=== PATIENT | female | born 1960 | race Caucasian/White ===

== ENCOUNTER 2022-02-08 05:14 | Observation (INO) | payer SELFPAY ==
[2022-02-08] VITALS (19 sets, daily range): BP systolic 79–130; BP diastolic 52–82; PULSE 70–130; RESP 13–21; TEMP 36.3–37; O2SAT 91–100; BMI 35.3
--- NOTE | ~2022-02-08 | XR_ITS ---
EXAMINATION: XR chest 1V portable DATE: 02/08/2022 07:46 INDICATION: Weakness. TECHNIQUE: A single frontal view of the chest was obtained. COMPARISON: Chest 2 views 06/11/2015, chest CT 06/11/2015 FINDINGS: There is chronic mild elevation of right hemidiaphragm. No pneumonia, pleural effusion, or pneumothorax. The heart size is normal. IMPRESSION: 1. No acute cardiopulmonary disease. Reviewed, dictated and finalized at location A. [employer]
--- NOTE | 2022-02-08 05:23 | ECG_ITS ---
Measurements Intervals [place] Rate: 108 P: 69 ME: 165 QRS: -43 QRSD: 109 T: 76 QT: 308 QTc: 414 Interpretive Statements SINUS TACHYCARDIA LEFT AXIS DEVIATION DELAYED PRECORDIAL R/S TRANSITION LEFT VENTRICULAR HYPERTROPHY AND ST-T CHANGE ABNORMAL ECG COMPARED TO ECG 09/27/2018 18:36:12 LEFT-AXIS DEVIATION NOW PRESENT LEFT VENTRICULAR HYPERTROPHY NOW PRESENT Electronically Signed On 02-08-2022 6:57:12 [employer] by Stuart Lacey D.O.
--- NOTE | 2022-02-08 05:35 | ED.SYNCOPE ---
HPI - Syncope General Chief Complaint: Syncope <Selena Day MD - Last Filed: 02/08/22 07:37> Stated Complaint: SYNCOPE/DIZZY/WEAK <Selena Day MD - Last Filed: 02/08/22 07:37> Time Seen by Provider: 02/08/22 05:35 <Selena Day MD - Last Filed: 02/08/22 07:37> Source: patient and EMS <Selena Day MD - Last Filed: 02/08/22 07:37> Mode of arrival: EMS <Selena Day MD - Last Filed: 02/08/22 07:37> Limitations: no limitations <Selena Day MD - Last Filed: 02/08/22 07:37> History of Present Illness HPI narrative: Patient is a 61-year-old female presenting to the emergency department for evaluation following a syncopal event. Patient presents via EMS. Patient woke up to go to the restroom, was attempting to have a bowel movement this morning and then passed out while having a bowel movement. Patient was able to catch herself falling forward. Patient was able to stand up and get back onto the toilet. EMS was contacted. At the time of their arrival, patient was sitting on the toilet. Patient states that she has been generally weak over the past several days. She denies focal weakness or numbness. She reports rhinorrhea and congestion. She reports subjective fever and chills. She reports decreased oral intake secondary to lack of appetite. She denies chest pain, palpitations. She denies shortness of breath. She denies current abdominal pain, nausea or vomiting. She denies dysuria or hematuria. Patient denies recent sick contacts. She denies current neck pain, cervical, thoracic or lumbar pain. She denies hip pain. <Selena Day MD - Last Filed: 02/08/22 07:37> Related Data Allergies/Adverse Reactions: Allergies Allergy/AdvReac Type Severity Reaction Status Date / Time No Known Allergies Allergy Unverified 06/11/15 16:09 <Selena Day MD - Last Filed: 02/08/22 07:37> Review of Systems Review of Systems: CONSTITUTIONAL: Denies fever, chills, or sweats. EYES: Denies visual changes, redness, or discharge. ENT: Reports rhinorrhea, denies sore throat or otalgia CARDIOVASCULAR: Denies chest pain, palpitations, or edema. RESPIRATORY: Denies cough or dyspnea. GASTROINTESTINAL: Denies abdominal pain, nausea, vomiting, or diarrhea. GENITOURINARY: Denies dysuria or hematuria. SKIN: Denies rash or itching. MUSCULOSKELETAL: Denies back pain, joint pain, or myalgia. NEUROLOGIC: Denies headache, numbness, reports generalized weakness <Selena Day MD - Last Filed: 02/08/22 07:37> [facility] Past Medical History Medical History: Medical History Orthostatic dizziness <Selena Day MD - Last Filed: 02/08/22 07:37> Surgical History Surgical History: Surgical History Hx of appendectomy <Selena Day MD - Last Filed: 02/08/22 07:37> Family History Family History: Family History Mother Diabetes mellitus Father Acute myocardial infarction Sibling Carcinoma of colon <Selena Day MD - Last Filed: 02/08/22 07:37> Social History Social History: Social History Smoking status: Current every day smoker Alcohol intake: current <Selena Day MD - Last Filed: 02/08/22 07:37> Exam Narrative: GENERAL: Awake, alert, conversant, ill-appearing HEAD: Normocephalic, atraumatic. EYES: PERRLA and EOMI. ENT: Nares clear, no rhinorrhea or epistaxis. Mucous membranes dry. NECK: Supple. CHEST: No respiratory distress, breathing even and non labored HEART: Tachycardic rate, sinus rhythm ABDOMEN:Non distended, non tender EXTREMITIES: Normal range of motion. No edema. SKIN: Warm, dry, no rash. NEURO:No focal deficits. Alert and oriented x3 <Selena Day MD - Last Filed: 02/08/22 07:3
[2022-02-08 05:50] LABS: Alanine Aminotransferase 16 U/L (6-35); Albumin Level 4.3 g/dL (3.5-5.1); Alkaline Phosphatase 87 U/L (38-126); Anion Gap 11 mmol/L (8-16); Aspartate Amino Transferase 30 U/L (14-36); Bilirubin,Total 0.4 mg/dL (0.2-1.3); Blood Urea Nitrogen 21 mg/dL (7-17); Calcium 8.7 mg/dL (8.4-10.2); Carbon Dioxide 19 mmol/L (22-30); Chloride 104 mmol/L (98-107); Estimated CRCL calculation 52 ml/min; Estimated Glomerular Filt Rate 46; Glucose 132 mg/dL (65-110); Potassium 4.1 mmol/L (3.4-5.0); Sodium 134 mmol/L (137-145)
[2022-02-08] MEDS: SODIUM CHLORIDE 0.9% IV 1,000 ML 999 ML IV CONT ×2 (05:51→09:29)
[2022-02-08] MEDS: ONDANSETRON INJ 4 MG/2 ML VIAL IV PUSH (05:51)
[2022-02-08 05:56] LABS: Basophils Absolute Auto 0.1 K/mm3 (0.0-0.1); Basophils Percent Auto 0.8 % (0.2-1.2); Hemoglobin 14.4 g/dL (12.0-15.0); Immature Granulocyte Absolute 0.04 K/mm3 (0.00-0.031); Immature Granulocyte Percent A 0.4 % (0-0.5); Lymphocytes Absolute Auto 0.84 K/mm3 (0.9-3.2); Lymphocytes Percent Auto 9.3 % (18.3-44.2); Mean Corpuscular HGB Conc 33.5 g/dl (32-36); Mean Corpuscular Hemoglobin 29.4 pg (26-34); Mean Corpuscular Volume 87.9 fl (80-100); Mean Platelet Volume 9.9 fl (7.4-10.4); Monocytes Absolute Auto 0.6 K/mm3 (0.1-0.6); Monocytes Percent Auto 6.8 % (2.6-8.5); Neutrophils Absolute Auto 7.5 K/mm3 (1.3-6.7); Neutrophils Percent Auto 82.7 % (45.5-73.1); Platelet Count Result 249 k/mm3 (150-375); Red Blood Count 4.89 M/mm3 (4.2-5.4); White Blood Count 9.1 K/mm3 (4.5-10.0)
[2022-02-08 07:16] LABS: NT Pro B Type Natriuretic Pept 236 pg/mL (5-100); Troponin I < 0.012 ng/mL (0.000-0.034)
[2022-02-08 07:32] LABS: INR 1.2; Prothrombin Time 14.6 Seconds (11.1-14.7)
[2022-02-08 07:33] LABS: Partial Thromboplastin Time 29.8 SECONDS (22.3-36.8)
[2022-02-08 07:36] LABS: Influenza A QL RT-PCR Negative (Negative); Influenza B QL RT-PCR Negative (Negative); RSV RNA, RT-PCR Negative (Negative); SARS-CoV-2 RNA PCR Positive
[2022-02-08 07:40] LABS: D Dimer 1.27 ug/mL (<0.48)
[2022-02-08 09:30] LABS: Appearance Urine Clear (Clear); Bilirubin Urine 1+ (Negative); Blood Urine 2+ (Negative); Color Urine Yellow (Yellow); Glucose Urine UA Negative (Negative); Ketones Urine 1+ mg/dL (Negative); Leukocyte Esterase Ur Negative LEU/UL (Negative); Nitrate Urine Negative (Negative); Protein Urine 1+ mg/dL (Negative); Urobilinogen Urine 0.2 mg/dL (<2.0)
[2022-02-08 09:39] LABS: Bacteria Urine Trace /hpf; Mucus Urine Rare /lpf; Squamous Epithelial Cell Urine Rare /hpf (Few); WBC Urine 0-3 /hpf
[2022-02-08 09:41] LABS: Add Urine Microscopic? YES
--- NOTE | 2022-02-08 11:45 | ADMGEN ---
This patient, Carmel Calvin, was admitted to Medical Room 261-01. Patient/family oriented to hospital policies and general routines including ID bracelet, bed and alarms, visiting hours, pain management, procedures, bathroom and other care routines, personal items, smoking policy, room service/diet, and visiting hours. Information on how to activate the Rapid Response Team has been discussed. Patient/Family are encouraged to report perceived risks to care and to ask questions if they do not understand what they are told or what they should do.
[2022-02-08] MEDS: SODIUM CHLORIDE 0.9% IV 1,000 ML 150 ML IV CONT ×2 (12:02→21:55)
--- NOTE | 2022-02-08 13:00 | PM.IMHP ---
H&P: HPI History of Present Illness Date/Time: 02/08/22 13:00 Chief Complaint: Syncope. Narrative: This is a 61-year-old female who presented to the emergency department via EMS from home for evaluation after a syncopal episode. This morning she was in the restroom and attempting to have a bowel movement when she lost consciousness briefly though is able to catch herself falling forward. She has a history of near-syncope and syncope related to orthostasis, according to her chart, and she was significantly orthostatic today with a drop in blood pressure to 79/52 from 117/62 and an increase in pulse from 88 to 120. With further questioning, she has not been feeling great for several days with generalized malaise, decreased appetite with poor oral intake, sinus congestion, rhinorrhea, subjective fever, chills, and loose cough. She tested positive for COVID in the emergency department and with her syncopal episode and orthostatic hypotension, she is being admitted for supportive care and IV fluid rehydration. Review of Systems Review of Systems: Twelve systems were reviewed and are negative except for as per HPI. [facility] Past Medical History Medical History (Updated 02/08/22 @ 23:45 by Kiesha Noriega PA-C) Orthostatic hypotension Tobacco dependence Surgical History Surgical History History of appendectomy (09/2018) History of cholecystectomy (02/2000) History of salpingo-oophorectomy Related to a tubal . History of tubal ligation Family History Family History (Updated 02/08/22 @ 13:31 by Kiesha Noriega PA-C) Mother Diabetes mellitus Father Acute myocardial infarction Sibling Carcinoma of colon Sibling Diabetes mellitus Social History Social History (Updated 02/08/22 @ 13:34 by Kiesha Noriega PA-C) Social History: Surrogate medical decision maker: Scott Hunteron, . Code status: Full code. Smoking packs per day: 2 Smoking cigarettes per day: 40.0 Years smoked: 48 Smoking pack-years: 96.00 Smoking status: Current every day smoker Tobacco type: cigarettes Additional smoking assessment comments: Smoked up to 2 packs a day for many years, now smokes 3/4 a pack a day. Alcohol intake: never Substance use: never Substance use type: does not use Lack of Transportation: No Lack of Food: Never True Current Housing: I Have Housing Concerned About Future Housing: No Difficulty Paying Gas/Electric Bills: No Difficulty Paying for Meds: No Currently Unemployed: No Education: High School Diploma/GED Difficulty w/ Childcare or Family Care: No Additional living arrangements comments: The patient lives at home with her . Additional occupation/education comments: Retired. Spiritual care concerns: No Meds Home Medications and Allergies Home Medications Medication Instructions Recorded Confirmed Type No Home Medications 02/08/22 02/08/22 History Allergies Allergy/AdvReac Type Severity Reaction Status Date / Time No Known Allergies Allergy Unverified 02/08/22 11:46 Vital Signs Vital Signs - 24 hr 02/08/22 05:19 02/08/22 05:20 02/08/22 07:23 Temperature 97.6 F Pulse Rate 105 H 89 Respiratory Rate 18 21 H Blood Pressure 127/72 108/69 Pulse Oximetry 92 Oxygen Delivery Room Air Room Air 02/08/22 07:30 02/08/22 08:30 02/08/22 09:00 Temperature Pulse Rate 89 92 76 Respiratory Rate 21 H 20 16 Blood Pressure 108/71 106/71 106/65 Pulse Oximetry 91 94 94 Oxygen Delivery 02/08/22 09:30 02/08/22 10:00 02/08/22 10:30 Temperature Pulse Rate 72 76 78 Respiratory Rate 13 16 16 Blood Pressure 112/72 118/69 125/80 Pulse Oximetry 95 98 100 Oxygen Delivery 02/08/22 11:00 02/08/22 11:45 02/08/22 11:45 Temperature 97.3 F L Pulse Rate 70 92 Respiratory Rate 16 18 Blood Pressure 130/73 116/71 Pulse Oximetry 99 99 Oxygen Delivery Ro
[2022-02-08] MEDS: ACETAMINOPHEN 325 MG TABLET 650 MG PO (21:55)
[2022-02-09] VITALS: PULSE 72
[2022-02-09 04:00] VITALS: PULSE 68
[2022-02-09 06:00] VITALS: BP 104/62; PULSE 58; RESP 18; TEMP 35.8; O2SAT 96
[2022-02-09] MEDS: SODIUM CHLORIDE 0.9% IV 1,000 ML 150 ML IV CONT (06:02)
[2022-02-09 06:06] LABS: Anion Gap 4 mmol/L (8-16); Blood Urea Nitrogen 13 mg/dL (7-17); Calcium 8.2 mg/dL (8.4-10.2); Carbon Dioxide 20 mmol/L (22-30); Chloride 113 mmol/L (98-107); Estimated CRCL calculation 68 ml/min; Estimated Glomerular Filt Rate > 60; Glucose 85 mg/dL (65-110); Magnesium 1.9 mg/dL (1.6-2.3); Potassium 3.9 mmol/L (3.4-5.0); Sodium 137 mmol/L (137-145)
[2022-02-09 08:00] VITALS: PULSE 66
[2022-02-09] MEDS: guaiFENesin 12 HR 600 MG TABCR PO (08:00)
[2022-02-09] MEDS: ENOXAPARIN 40 MG/0.4 ML SYRINGE SUB-Q (08:00)
[2022-02-09 12:00] VITALS: PULSE 59
--- NOTE | 2022-02-09 14:33 | PM.DS ---
DS: Admitting Diagnosis Discharge Date 02/09/22 Admitting Diagnosis syncope DS: Discharge Diagnosis Discharge Diagnosis (1) Syncope: Code(s): R55 - Syncope and collapse Status: Acute (2) Orthostatic hypotension: Code(s): I95.1 - Orthostatic hypotension Status: Acute DS: Summary Hospital Course Hospital Course: This is a 61-year-old female who presented to the emergency department via EMS from home for evaluation after a syncopal episode. This morning she was in the restroom and attempting to have a bowel movement when she lost consciousness briefly though is able to catch herself falling forward. She has a history of near-syncope and syncope related to orthostasis, according to her chart, and she was significantly orthostatic today with a drop in blood pressure to 79/52 from 117/62 and an increase in pulse from 88 to 120. With further questioning, she has not been feeling great for several days with generalized malaise, decreased appetite with poor oral intake, sinus congestion, rhinorrhea, subjective fever, chills, and loose cough. She tested positive for COVID in the emergency department and with her syncopal episode and orthostatic hypotension, she is being admitted for supportive care and IV fluid rehydration. this morning patient is asymptomatic. no electrolyte abnormality. No arrhythmia on telemetry monitoring. Patient was advised to use compression stockings at home. Will put her on midodrine upon discharge for orthostatic hypotension. patient is stable and is being discharged home Time Spent with Patient Time attestation: Total time spent providing and/or coordinating discharge services: Exam Const: Other: Mildly ill-appearing female supine in bed. Weight: 99.2 kilograms. BMI: 35.3. HENMT: Other: Normocephalic, atraumatic. Nares patent. Dry mucous membranes. Eyes: Other: Pupils are reactive. Extraocular motions intact. Sclerae anicteric. Neck: Other: Supple. No lymphadenopathy. Resp: Other: Respirations are nonlabored and she is speaking in full sentences. Cardio: Other: Regular rate and rhythm with normal S1-S2. GI: Other: Abdomen is soft, nontender, and nondistended with positive bowel sounds. Skin: Other: Warm and a bit moist. Neuro: Other: Alert. Cranial nerves 2-12 are grossly intact. No gross focal deficits to casual conversation. Extrem: Other: No cyanosis, clubbing, or edema. Peripheral pulses intact. Psych: Other: Pleasant and cooperative. Appropriate mood and affect. DS: Data Data Completed and Pending Labs on day of discharge: Labs from last 24 hours 02/09/22 05:12 Sodium 137 Potassium 3.9 Chloride 113 H Carbon Dioxide 20 L Anion Gap 4 L BUN 13 D Creatinine 0.90 Estim Creat Clear Calc 68 Estimated GFR > 60 Glucose 85 Calcium 8.2 L Magnesium 1.9 Discharge Plan Discharge Discharging Clinician: Benoit Lyn Anticipated Discharge Date/Time: 02/09/22 11:52 Patient Disposition: Home, Self-Care Activity: july shower Diet: regular Patient Instructions: Antibiotic Form Stand Alone Forms: General Discharge Information Follow-up/Referrals: PHYSICIAN,PIGMENT PUSHER [Primary Care Provider] - Discharge Medications: New midodrine 5 mg tablet 5 mg PO TID Qty: 90 0RF Rx Instructions: do not give last dose of day after 6PM or within 4 hrs of bedtime Date of admission: 02/08/22 09:00 Primary Care Provider: PHYSICIAN,PIGMENT PUSHER Admitting Provider: Gunnar Lara Attending physician on admission: Benoit Lyn Condition: Stable
== END 2022-02-09 15:06 | disposition home or self-care (01) ==
LOC: ANHED 08:59 → ANH2MED 11:05
PROVIDERS: Emergency Medicine; Admitting Provider Chiropractor; Emergency Provider Emergency Medicine; Visit Provider Hospitalist
DX: I95.1 Orthostatic hypotension (principal); U07.1 COVID-19; E86.0 Dehydration; R94.31 Abnormal electrocardiogram [ECG] [EKG]; R63.0 Anorexia; Z68.35 Body mass index [BMI] 35.0-35.9, adult; R00.0 Tachycardia, unspecified; F17.210 Nicotine dependence, cigarettes, uncomplicated
CPT/HCPCS: 36415; 51701; 71045; 80048; 80053; 81001; 83735; 83880; 84443; 84484; 85025; 85380; 85610; 85730; 87637; 93005; 96360; 96361; 96365; 96372; 96375; 99285; A9270; G0378; J0131; J1650; J2405; J7030